=== PATIENT | female | born 1930 | race African-American/Black ===

== ENCOUNTER 2019-09-14 11:45 | Observation (INO) | payer MEDICARE, MEDICAID ==
--- NOTE | 2019-09-14 13:04 | RADIOLOGY REPORT (SQ) ---
EXAM DESCRIPTION: CHEST SINGLE VIEW COMPLETED DATE/TIME: 09/14/2019 12:49 pm REASON FOR STUDY: respitory distress COMPARISON: None. EXAM PARAMETERS: NUMBER OF VIEWS: One view. TECHNIQUE: An AP view of the chest was obtained. RADIATION DOSE: NA LIMITATIONS: None. FINDINGS: LUNGS AND PLEURA: Asymmetric parenchymal opacities in the medial aspect of the inferior le ft hemithorax. There is no sizable pleural effusion or pneumothorax. MEDIASTINUM AND HILAR STRUCTURES: No mediastinal or hilar contour abnormality. HEART AND VASCULAR STRUCTURES: The cardiac silhouette is enlarged. The pulmonary vasculature is with in normal limits. BONES: No acute findings. HARDWARE: None in the chest. OTHER: No other finding. IMPRESSION: 1. Cardiomegaly without pulmonary edema. 2. Asymmetric left retrocardiac opacities. Clinical correlate to exclude a pneumonia is recommended. TECHNICAL DOCUMENTATION: JOB ID: [id number] 2010 [employer]- All Rights Reserved Reading location - IP/workstation name: [email or web address]
[2019-09-14 16:32] LABS: APPEARANCE,URINE CLEAR; BILIRUBIN,URINE NEGATIVE (NEGATIVE); COLOR,URINE STRAW; GLUCOSE, URINE NEGATIVE (NEGATIVE); KETONES,URINE TRACE mg/dL (NEGATIVE); LEUKOCYTE ESTERASE,URINE NEGATIVE (NEGATIVE); NITRITE,URINE NEGATIVE (NEGATIVE); PROTEIN,URINE 100 mg/dL (NEGATIVE); UROBILINOGEN,URINE NEGATIVE mg/dL (<2.0)
[2019-09-14 16:47] LABS: ABSOLUTE BASOPHILS # (AUTO) 0.1 10^3/uL (0.0-0.2); ABSOLUTE EOSINOPHILS # (AUTO) 0.5 10^3/uL (0.0-0.6); ABSOLUTE LYMPHOCYTES (AUTO) 2.4 10^3/uL (0.5-4.7); ABSOLUTE MONOCYTES (AUTO) 0.5 10^3/uL (0.1-1.4); ABSOLUTE NEUT (AUTO) 3.6 10^3/uL (1.7-8.2); BASOPHILS % (AUTO) 0.9 % (0-2); EOSINOPHILS % (AUTO) 6.4 % (0-6); HEMATOCRIT 30.4 % (36.0-47.0); HEMOGLOBIN 9.2 g/dL (12.0-15.5); LYMPHOCYTES % (AUTO) 34.5 % (13-45); MEAN CORPUSCULAR HGB CONC 30.4 g/dL (32.0-36.0); MEAN CORPUSCULAR VOLUME 82 fl (80-97); MONOCYTES % (AUTO) 6.7 % (3-13); PLATELET COUNT 445 10^3/uL (150-450); RED CELL DISTRIBUTION WIDTH 18.7 % (11.5-14.0); SEGMENTED NEUTROPHILS % (AUTO) 51.5 % (42-78); TOTAL CELLS COUNTED % (AUTO) 100 %; WHITE BLOOD COUNT 7.1 10^3/uL (4.0-10.5)
[2019-09-14 16:55] LABS: ARTERIAL BLOOD BASE EXCESS 8.5 mmol/L; ARTERIAL BLOOD H2CO3 1.57 mmol/L (1.05-1.35); ARTERIAL BLOOD HCO3 33.9 mmol/L (20-24); ARTERIAL BLOOD O2 SATURATION 88.4 % (94-98); ARTERIAL BLOOD PH 7.43 (7.35-7.45); ARTERIAL BLOOD PO2 53.9 mmHg (80-100); ARTERIAL BLOOD TOTAL CO2 35.5 mmol/L (21-25)
[2019-09-14 17:12] LABS: ALBUMIN 3.4 g/dL (3.5-5.0); ALKALINE PHOSPHATASE 78 U/L (38-126); ASPARTATE AMINO TRANSFERASE 18 U/L (14-36); BILIRUBIN,DIRECT 0.3 mg/dL (0.0-0.4); BILIRUBIN,TOTAL 0.3 mg/dL (0.2-1.3); BLOOD UREA NITROGEN 12 mg/dL (7-20); CALCIUM 9.8 mg/dL (8.4-10.2); CHLORIDE 97 mmol/L (98-107); CREATINE KINASE 34 U/L (30-135); GLUCOSE 134 mg/dL (75-110); POTASSIUM 4.5 mmol/L (3.6-5.0); TOTAL PROTEIN 7.3 g/dL (6.3-8.2)
--- NOTE | 2019-09-14 17:20 | ER Document Report ---
Entered by KIESHA YUAN SCRIBE 09/14/19 1518 Acting as scribe for:MELL MARTINEZ MD ED General - General Chief Complaint: Respiratory Distress Stated Complaint: DIFFICULTY BREATHING Time Seen by Provider: 09/14/19 15:07 Primary Care Provider: JUANCARLOS DUNCAN MD [Primary Care Provider] - Follow up as needed Information source: Patient, Outside Facility Records Notes: 88-year-old female with dementia and COPD presents to the emergency department via with respiratory distress. Patient was brought over from detention and reports shortness of breath. Patient was hospitalized at [facility] on 08/15/2019 (1 month ago) for SOB and diagnosed with community-acquired pneumonia. Patient was transferred to [facility] on 08/24/2019. Patient was discharged yesterday (09/13/2019) and checked into detention yesterday. TRAVEL OUTSIDE OF THE [place] IN LAST 30 DAYS: No - Related Data Allergies/Adverse Reactions: barley Allergy (Verified 09/14/19 12:20) ranitidine Allergy (Verified 09/14/19 12:20) sulfamethoxazole [From Bactrim] Allergy (Verified 09/14/19 12:20) trimethoprim [From Bactrim] Allergy (Verified 09/14/19 12:20) iodine Adverse Reaction (Verified 09/14/19 12:20) shellfish derived Adverse Reaction (Verified 09/14/19 12:20) Past Medical History - General Information source: Patient - Social History Smoking Status: Unknown if Ever Smoked Cigarette use (# per day): No Chew tobacco use (# tins/day): No Smoking Education Provided: No Frequency of alcohol use: None Drug Abuse: None Lives with: Alf Family History: Other - Family history is not available. Patient has suicidal ideation: No Patient has homicidal ideation: No - Past Medical History Cardiac Medical History: Reports: Hx Congestive Heart Failure, Hx Hypercholesterolemia, Hx Hypertension, Other - Lymphedema Pulmonary Medical History: Reports: Hx COPD, Hx Pneumonia Neurological Medical History: Reports: Hx Seizures Endocrine Medical History: Reports: Hx Diabetes Mellitus Type 2, Hx Hypothyroidism Renal/ Medical History: Reports: Hx Renal Insufficiency GI Medical History: Reports: Hx Gastroesophageal Reflux Disease Musculoskeletal Medical History: Reports Hx Arthritis, Reports Hx Gout Psychiatric Medical History: Reports: Hx Dementia Surgical Hx: Other - Surgical history unknown Review of Systems - Review of Systems -: Yes ROS unobtainable due to patient's medical condition - Patient has dementia Physical Exam - Vital signs Vitals: Resp 29 H 09/14/19 12:00 - Notes Notes: Physical Exam: General: Alert, appears well. Conversational. Morbidly Obese. HEENT: Normocephalic. Atraumatic. PERRL. Extraocular movements intact. Oropharynx clear. Neck: Supple. Non-tender. Respiratory: Respiratory rate of 40. Rales and rhonchi in the lower lung mary on expiration. Moans with each expiration. Cardiovascular: Regular rate and rhythm. Abdominal: Normal Inspection. Non-tender. No distension. Normal Bowel Sounds. Back: No gross abnormalities. Extremities: Moves all four extremities. Upper extremities: Normal inspection. Normal ROM. Lower extremities: No edema. Normal ROM. 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 Neurological: Normal cognition. AAOx4. Normal speech. Psychological: Normal affect. Normal Mood. Skin: Warm. Dry. Normal color. Course - Re-evaluation Re-evalutation: 09/14/19 18:29 Room air ABG shows a pH 7.43, PCO2 52, PO2 of 53.9, O2 saturation 88.4%. Patient was placed on 2 liters O2 nasal cannula after the ABG results were available. Pulse oximetry increased to 100%. - Vital Signs Vital signs: Temp Pulse Resp BP Pulse Ox 98.4 F 35 H 169/86 H 91 L 09/14/19 14:17 09/14/19 18:02 09/14/19 18:02 09/14/19 17:17 - Laboratory Result Diagrams: 09/14/19 16:20 09/14/19 16:20 Laboratory results interpreted by me: 09/14/19 09/14/19 09/14/19 15:40 15:59 16:20 RBC 3.70 L Hgb 9.2 L Hct 30.4 L MCH 25.0 L MCHC 30.4 L RDW 18.7 H Eos % (Auto) 6.4 H Carbonic Acid 1.57 H ABG pCO2 52.0 H ABG pO2 53.9 L ABG HCO3 33.9 H ABG Total CO2 35.5 H ABG O2 Saturation 88.4 L Chloride Carbon Dioxide Glucose Albumin Urine Protein 100 H Urine Ketones TRACE H 09/14/19 16:20 RBC Hgb Hct MCH MCHC RDW Eos % (Auto) Carbonic Acid ABG pCO2 ABG pO2 ABG HCO3 ABG Total CO2 ABG O2 Saturation Chloride 97 L Carbon Dioxide 35 H Glucose 134 H Albumin 3.4 L Urine Protein Urine Ketones - Diagnostic Test Radiology reviewed: Image reviewed, Reports reviewed - Chest x-ray shows a left retrocardiac opacity - EKG Interpretation by Me EKG shows normal: Sinus rhythm, [place], Intervals, QRS Complexes, ST-T Waves Rate: Normal - 93 Rhythm: NSR - Consults Dr. Acevedo Consulted provider: other - Agrees with telemetry admit, will have the night hospitalist see the patient. Critical Care Note - Critical Care Note Total time excluding time spent on procedures (mins): 40 Discharge - Discharge Clinical Impression: Tachypnea, Hypoxemia, CO2 retention, Retrocardiac opacity, Tachycardia COPD (chronic obstructive pulmonary disease) Qualifiers: COPD type: unspecified COPD Qualified Code(s): J44.9 - Chronic obstructive pulmonary disease, unspecified Hypertension Qualifiers: Hypertension type: essential hypertension Qualified Code(s): I10 - Essential (primary) hypertension Condition: Good Disposition: ADMITTED INPATIENT Admitting Provider: Curtis (Hospitalist) Unit Admitted: Telemetry Referrals: JUANCARLOS DUNCAN MD [Primary Care Provider] - Follow up as needed I personally performed the services described in the documentation, reviewed and edited the documentation which was dictated to the scribe in my presence, and it accurately records my words and actions.
[2019-09-14 17:23] LABS: ANION GAP 11 (5-19)
[2019-09-14 17:25] LABS: CARBON DIOXIDE 35 mmol/L (22-30)
[2019-09-14 18:12] LABS: ARTERIAL BLOOD FIO2 2L
--- NOTE | 2019-09-14 18:44 | EKG REPORT ---
SEVERITY:- NORMAL ECG - SINUS RHYTHM : Confirmed by: Ziyad Blue MD 14-Sep-2019 18:43:25
[2019-09-14] MEDS ORDERED: IPRATROPIUM/ALBUTEROL 0.5-2.5 MG/3 ML AMPUL NEB ONE (18:47)
[2019-09-14] MEDS ORDERED: ALBUTEROL SULFATE 0.083% NEB 2.5 MG/3 ML AMPUL NEB ONE (19:15)
[2019-09-14] MEDS ORDERED: ONDANSETRON HCL INJ/PF 4 MG/2 ML SDV IV PRN (21:13)
[2019-09-14] MEDS ORDERED: ONDANSETRON 4 MG TAB.RAPDIS PO PRN (21:13)
[2019-09-14] MEDS ORDERED: ALBUTEROL SULFATE 0.083% NEB 2.5 MG/3 ML AMPUL NEB PRN (21:21)
[2019-09-14] MEDS ORDERED: BENZONATATE 100 MG CAPSULE PO PRN (21:21)
[2019-09-14] MEDS ORDERED: ALBUTEROL SULFATE HFA (90 MCG/PUFF) 8 GM MDI IH PRN (21:21)
--- NOTE | 2019-09-14 21:43 | PDOC H&P ---
History of Present Illness Admission Date/PCP: 09/14/19 19:19 JUANCARLOS DUNCAN MD History of Present Illness: HARPREET NEGRO is a 88 year old female with past medical history of COPD, severe community-acquired pneumonia, severe dementia, T2DM who presented from nursing facility after 1 day of acute respiratory distress with shortness of breath and [place]. Patient was reportedly admitted to [facility] for approximately 1 month for severe pneumonia and was released to nearby nursing [facility] on day of admission. History cannot be obtained by patient due to severe dementia, history primarily taken from ED staff and records. Patient initially placed on BiPAP in ED but she did not tolerate this at all and this was removed. She became more stable on only 2 L nasal cannula which she uses at home already chronically. She does not look toxic on exam and is breathing comfortably on 2 L nasal cannula. He is afebrile and has a normal WBC. Started on azithromycin, steroids, scheduled nebulizer treatments. Past Medical History Cardiac Medical History: Reports: Congestive Heart Failure, Hyperlipidema, Hypertension, Other - Lymphedema Pulmonary Medical History: Reports: Chronic Obstructive Pulmonary Disease (COPD ), Pneumonia Neurological Medical History: Reports: Seizures Endocrine Medical History: Reports: Diabetes Mellitus Type 2, Hypothyroidism GI Medical History: Reports: Gastroesophageal Reflux Disease Musculoskeltal Medical History: Reports: Arthritis, Gout Psychiatric Medical History: Reports: Dementia Social History Information Source: [facility] Records Lives with: Assisted Smoking Status: Unknown if Ever Smoked Electronic Cigarette use?: No - Advance Directive Resuscitation Status: Full Code Family History Family History: Other - Family history is not available. Parental Family History Reviewed: No - Patient has dementia and does not know answers to questions Children Family History Reviewed: NA Sibling(s) Family History Reviewed.: NA Medication/Allergy Home Medications: Acetaminophen [Tylenol 325 mg Tablet] 650 mg PO Q6HP PRN 09/14/19 Albuterol Sulfate [Ventolin 0.083% Neb 2.5 mg/3 mL Ampul] 1 vial NEB Q6HP PRN 09/14/19 Albuterol Sulfate [Ventolin Hfa 8 gm Mdi] 2 puff IH Q4HP PRN 09/14/19 Aspirin [Aspirin 81 mg Chewable Tablet] 81 mg PO DAILY 09/14/19 Benzonatate [Tessalon Perles 100 mg Capsule] 100 mg PO TIDP PRN 09/14/19 Budesonide/Formoterol Fumarate [Symbicort HFA 160-4.5 mcg Inhaler 6 gm] 2 puff IH Q12 09/14/19 Ferrous Sulfate [Feosol 325 mg Tablet] 325 mg PO DAILY 09/14/19 Gabapentin [Neurontin 300 mg Capsule] 600 mg PO Q8 09/14/19 Glimepiride [Amaryl 4 mg Tablet] 4 mg PO DAILY 09/14/19 Insulin Glargine/Lixisenatide [Soliqua 100 Unit-33 Mcg/ml Pen] 28 units SQ QHS 09/14/19 Levothyroxine Sodium [Synthroid 0.05 mg Tablet] 0.05 mg PO Q6AM 09/14/19 Metoprolol Tartrate [Lopressor 25 mg Tablet] 12.5 mg PO Q12 09/14/19 Mirtazapine 30 mg PO QHS 09/14/19 Montelukast Sodium [Singulair 10 mg Tablet] 10 mg PO DAILY 09/14/19 Multivit,Calc,Mins/Iron/Folic [Thera M Plus Tablet] 1 tab PO QPM 09/14/19 Omeprazole 40 mg PO BID 09/14/19 Thiamine HCl [Thiamine 100 mg Tablet] 100 mg PO DAILY 09/14/19 Zinc Oxide [Skin Protectant] 1 applic TOP Q12 09/14/19 Allergies/Adverse Reactions: barley Allergy (Verified 09/14/19 12:20) ranitidine Allergy (Verified 09/14/19 12:20) sulfamethoxazole [From Bactrim] Allergy (Verified 09/14/19 12:20) trimethoprim [From Bactrim] Allergy (Verified 09/14/19 12:20) iodine Adverse Reaction (Verified 09/14/19 12:20) shellfish derived Adverse Reaction (Verified 09/14/19 12:20) Review of Systems All systems: reviewed and no additional remarkable complaints except as stated - ROS unobtainable due to severe dementia, see HPI Physical Exam Vital Signs: Temp Pulse Resp BP Pulse Ox 99.2 F 29 H 140/65 H 100 09/14/19 20:15 09/14/19 20:01 09/14/19 20:01 09/14/19 20:01 Intake & Output 03/03/20 03/04/20 03/05/20 06:59 06:59 06:59 Output Total 500 Balance -500 General appearance: PRESENT: no acute distress, cooperative Head exam: PRESENT: atraumatic, normocephalic Eye exam: PRESENT: conjunctiva pink Mouth exam: PRESENT: moist Respiratory exam: PRESENT: decreased breath sounds - Overall bilateral chronic diminished breath sounds consistent with COPD, unlabored, wheezes. ABSENT: crackles, rales, tachypnea Cardiovascular exam: PRESENT: RRR. ABSENT: diastolic murmur, rubs, systolic murmur GI/Abdominal exam: PRESENT: normal bowel sounds, soft. ABSENT: distended, guarding, mass, organolmegaly, rebound, tenderness Rectal exam: PRESENT: deferred Extremities exam: ABSENT: pedal edema Neurological exam: PRESENT: alert, awake, oriented to person. ABSENT: oriented to place, oriented to time, oriented to situation Psychiatric exam: PRESENT: appropriate affect, normal mood Skin exam: PRESENT: dry, intact, warm Results Laboratory Results: 09/14/19 16:20 09/14/19 16:20 09/14/19 09/14/19 09/14/19 15:40 15:59 16:20 WBC 7.1 RBC 3.70 L Hgb 9.2 L Hct 30.4 L MCV 82 MCH 25.0 L MCHC 30.4 L RDW 18.7 H Plt Count 445 Seg Neutrophils % 51.5 Carbonic Acid 1.57 H HCO3/H2CO3 Ratio 21:1 ABG pH 7.43 ABG pCO2 52.0 H ABG pO2 53.9 L ABG HCO3 33.9 H ABG O2 Saturation 88.4 L ABG Base Excess 8.5 FiO2 2L Sodium Potassium Chloride Carbon Dioxide Anion Gap BUN Creatinine Est GFR ( Amer) Glucose Calcium Total Bilirubin AST Alkaline Phosphatase Total Protein Albumin Urine Color STRAW Urine Appearance CLEAR Urine pH 8.0 Ur Specific [place] 1.010 Urine Protein 100 H Urine Glucose (UA) NEGATIVE Urine Ketones TRACE H Urine Blood NEGATIVE Urine Nitrite NEGATIVE Ur Leukocyte Esterase NEGATIVE Urine WBC (Auto) 1 Urine RBC (Auto) 4 09/14/19 16:20 WBC RBC Hgb Hct MCV MCH MCHC RDW Plt Count Seg Neutrophils % Carbonic Acid HCO3/H2CO3 Ratio ABG pH ABG pCO2 ABG pO2 ABG HCO3 ABG O2 Saturation ABG Base Excess FiO2 Sodium 142.6 Potassium 4.5 Chloride 97 L Carbon Dioxide 35 H Anion Gap 11 BUN 12 Creatinine 0.89 Est GFR ( Amer) > 60 Glucose 134 H Calcium 9.8 Total Bilirubin 0.3 AST 18 Alkaline Phosphatase 78 Total Protein 7.3 Albumin 3.4 L Urine Color Urine Appearance Urine pH Ur Specific [place] Urine Protein Urine Glucose (UA) Urine Ketones Urine Blood Urine Nitrite Ur Leukocyte Esterase Urine WBC (Auto) Urine RBC (Auto) 09/14/19 09/14/19 16:20 16:20 Creatine Kinase 34 Troponin I < 0.012 Impressions: Chest X-Ray 09/14/19 00:00 IMPRESSION: 1. Cardiomegaly without pulmonary edema. 2. Asymmetric left retrocardiac opacities. Clinical correlate to exclude a pneumonia is recommended. Assessment and Plan - Diagnosis (1) COPD exacerbation Is this a current diagnosis for this admission?: Yes Plan: Wheezing on exam consistent with COPD exacerbation, no discrete crackles noted on exam but somewhat limited exam quality due to habitus Schedule duo nebs Azithromycin We will hold off on broader antibiotics for now as she has no fever and a normal WBC and was recently given a course of antibiotics at outside hospital Check PVL BLE to rule out DVT and d-dimer given her prolonged immobility she is at risk for DVT/PE; get CTA chest in a.m. if these tests are positive and treat appropriately Prednisone 40 mg daily for 5 days (2) T2DM (type 2 diabetes mellitus) Qualifiers: Diabetes mellitus [place] machine operator helper insulin use: with longterm use Diabetes mellitus complication status: with hyperglycemia Qualified Code(s): E11.65 - Type 2 diabetes mellitus with hyperglycemia; Z79.4 - computer terminal operator (current) use of insulin Is this a current diagnosis for this admission?: Yes Plan: Accu-Cheks Continue home Lantus Low-dose correctional insulin (3) CHF (congestive heart failure) Is this a current diagnosis for this admission?: Yes Plan: Unspecified CHF, unclear if diastolic or systolic Consider requesting outside records in a.m. Hold off on IV fluids unless absolutely indicated to avoid volume overload (4) Hypothyroidism Is this a current diagnosis for this admission?: Yes Plan: Synthroid continued (5) Severe dementia Is this a current diagnosis for this admission?: Yes Plan: Daughter is M POA Bedbound at baseline per ED staff (6) History of recent hospitalization Is this a current diagnosis for this admission?: Yes Plan: Recently treated for pneumonia at [facility] then sent to SNF 3/4 - Time Time Spent with patient: 35 or more minutes Anticipated discharge: SNF - Inpatient Certification Medical Necessity: Significant Comorbidiites Make Outpatient Treatment Too Risky, Need Close Monitoring Due to Risk of Patient Decompensation
[2019-09-14] MEDS ORDERED: ZINC OXIDE TOP SCH (22:00)
[2019-09-14] MEDS ORDERED: [UNRECOGNIZED DRUG - OTHER] SQ SCH (22:00)
[2019-09-14] MEDS ORDERED: MIRTAZAPINE 15 MG PO SCH (22:00)
[2019-09-14] MEDS: HEPARIN SOD (PORCINE) 5,000 UNIT/ML 1 ML VIAL SUBCUT SCH (23:23)
[2019-09-14] MEDS: METOPROLOL TARTRATE 25 MG TABLET PO SCH (23:23)
[2019-09-14] MEDS: GABAPENTIN 300 MG CAPSULE PO SCH (23:24)
[2019-09-14] MEDS: MIRTAZAPINE 15 MG TABLET PO SCH (23:24)
[2019-09-14] MEDS: ZINC OXIDE 20% OINTMENT 28.35 GM TP SCH (23:24)
[2019-09-14] MEDS: PREDNISONE 20 MG TABLET PO SCH (23:59)
[2019-09-15] MEDS: INSULIN LISPRO 100 UNIT/ML 3 ML VIAL SUBCUT SCH ×4 (00:24→17:03)
[2019-09-15] MEDS: IPRATROPIUM/ALBUTEROL 0.5-2.5 MG/3 ML AMPUL NEB SCH ×7 (00:45→23:33)
[2019-09-15 05:42] LABS: ABSOLUTE EOSINOPHILS # (AUTO) 0.1 10^3/uL (0.0-0.6); ABSOLUTE LYMPHOCYTES (AUTO) 1.3 10^3/uL (0.5-4.7); ABSOLUTE MONOCYTES (AUTO) 0.1 10^3/uL (0.1-1.4); ABSOLUTE NEUT (AUTO) 3.7 10^3/uL (1.7-8.2); BASOPHILS % (AUTO) 0.6 % (0-2); HEMATOCRIT 29.5 % (36.0-47.0); HEMOGLOBIN 9.6 g/dL (12.0-15.5); LYMPHOCYTES % (AUTO) 25.2 % (13-45); MEAN CORPUSCULAR HEMOGLOBIN 26.2 pg (27.0-33.4); MEAN CORPUSCULAR HGB CONC 32.6 g/dL (32.0-36.0); MEAN CORPUSCULAR VOLUME 80 fl (80-97); MONOCYTES % (AUTO) 1.9 % (3-13); PLATELET COUNT 422 10^3/uL (150-450); RED BLOOD COUNT 3.67 10^6/uL (3.72-5.28); RED CELL DISTRIBUTION WIDTH 19.5 % (11.5-14.0); SEGMENTED NEUTROPHILS % (AUTO) 71.3 % (42-78); TOTAL CELLS COUNTED % (AUTO) 100 %; WHITE BLOOD COUNT 5.2 10^3/uL (4.0-10.5)
[2019-09-15] MEDS: GABAPENTIN 300 MG CAPSULE PO SCH ×3 (05:54→21:22)
[2019-09-15] MEDS: LEVOTHYROXINE SODIUM 0.05 MG TABLET PO SCH (05:54)
[2019-09-15] MEDS: HEPARIN SOD (PORCINE) 5,000 UNIT/ML 1 ML VIAL SUBCUT SCH ×3 (05:56→21:22)
[2019-09-15 06:06] LABS: ANION GAP 8 (5-19); BLOOD UREA NITROGEN 12 mg/dL (7-20); CALCIUM 9.8 mg/dL (8.4-10.2); CARBON DIOXIDE 36 mmol/L (22-30); CHLORIDE 98 mmol/L (98-107); GLUCOSE 143 mg/dL (75-110); POTASSIUM 4.9 mmol/L (3.6-5.0)
[2019-09-15] MEDS: GLIMEPIRIDE 4 MG TABLET PO SCH (10:55)
[2019-09-15] MEDS: PANTOPRAZOLE SODIUM 40 MG TABLET.DR PO SCH ×2 (10:55→17:04)
[2019-09-15] MEDS: AZITHROMYCIN 250 MG TABLET PO SCH (10:55)
[2019-09-15] MEDS: ASPIRIN 81 MG TABLET, CHEWABLE PO SCH (10:58)
[2019-09-15] MEDS: METOPROLOL TARTRATE 25 MG TABLET PO SCH ×2 (10:58→21:21)
[2019-09-15] MEDS: THIAMINE HCL 100 MG TABLET PO SCH (10:58)
[2019-09-15] MEDS: FLUTICASONE/VILANTEROL 200-25 MCG/DOSE IH SCH (10:58)
[2019-09-15] MEDS: FERROUS SULFATE 325 MG TABLET PO SCH (10:58)
[2019-09-15] MEDS: PREDNISONE 20 MG TABLET PO SCH (10:58)
[2019-09-15] MEDS: MONTELUKAST SODIUM 10 MG TABLET PO SCH (10:58)
[2019-09-15] MEDS: ZINC OXIDE 20% OINTMENT 28.35 GM TP SCH ×2 (10:59→21:27)
--- NOTE | 2019-09-15 14:13 | PDOC PROGRESS REPORT ---
Subjective Progress Note for:: 09/15/19 Subjective:: Per the nurses the patient had a reasonable night. Her breathing has settled. She is not on BiPAP at this time. She is somewhat somnolent. The nurses state that this is not out of her normal pattern of behavior. They did reach out to the skilled facility for further information. Because of her history of COPD and her elevated PCO2 on admitting blood gas I am going to check another ABG. Reason For Visit: COPD EXACERBATION Physical Exam Vital Signs: Temp Pulse Resp BP Pulse Ox 98.0 F 88 18 139/61 H 90 L 09/15/19 11:16 09/15/19 12:19 09/15/19 12:19 09/15/19 11:16 09/15/19 12:19 Intake & Output 09/14/19 09/15/19 09/16/19 06:59 06:59 06:59 Output Total 750 300 Balance -750 -300 Weight 97.7 kg General appearance: PRESENT: no acute distress, other - Somnolent Head exam: PRESENT: atraumatic, normocephalic Respiratory exam: PRESENT: clear to auscultation mar[place] - Anteriorly, symmetrical, unlabored. ABSENT: rales, rhonchi, tachypnea, wheezes Cardiovascular exam: PRESENT: RRR, +S1, +S2 GI/Abdominal exam: PRESENT: normal bowel sounds, soft. ABSENT: distended, tenderness Rectal exam: PRESENT: deferred Neurological exam: PRESENT: altered - Patient is quite somnolent. I did make several attempts to awaken the patient. Nurses report that after discussing with the skilled facility this is possibly her baseline pattern of behavior. ABSENT: awake Results Laboratory Results: 09/15/19 05:08 09/15/19 05:08 09/14/19 09/14/19 09/14/19 15:40 15:59 16:20 WBC 7.1 RBC 3.70 L Hgb 9.2 L Hct 30.4 L MCV 82 MCH 25.0 L MCHC 30.4 L RDW 18.7 H Plt Count 445 Seg Neutrophils % 51.5 Carbonic Acid 1.57 H HCO3/H2CO3 Ratio 21:1 ABG pH 7.43 ABG pCO2 52.0 H ABG pO2 53.9 L ABG HCO3 33.9 H ABG O2 Saturation 88.4 L ABG Base Excess 8.5 FiO2 2L Sodium Potassium Chloride Carbon Dioxide Anion Gap BUN Creatinine Est GFR ( Amer) Glucose Calcium Magnesium Total Bilirubin AST Alkaline Phosphatase Total Protein Albumin Urine Color STRAW Urine Appearance CLEAR Urine pH 8.0 Ur Specific [place] 1.010 Urine Protein 100 H Urine Glucose (UA) NEGATIVE Urine Ketones TRACE H Urine Blood NEGATIVE Urine Nitrite NEGATIVE Ur Leukocyte Esterase NEGATIVE Urine WBC (Auto) 1 Urine RBC (Auto) 4 09/14/19 09/15/19 09/15/19 16:20 05:08 05:08 WBC 5.2 RBC 3.67 L Hgb 9.6 L Hct 29.5 L MCV 80 MCH 26.2 L MCHC 32.6 RDW 19.5 H Plt Count 422 Seg Neutrophils % 71.3 Carbonic Acid HCO3/H2CO3 Ratio ABG pH ABG pCO2 ABG pO2 ABG HCO3 ABG O2 Saturation ABG Base Excess FiO2 Sodium 142.6 142.1 Potassium 4.5 4.9 Chloride 97 L 98 Carbon Dioxide 35 H 36 H Anion Gap 11 8 BUN 12 12 Creatinine 0.89 0.77 Est GFR ( Amer) > 60 > 60 Glucose 134 H 143 H Calcium 9.8 9.8 Magnesium 2.1 Total Bilirubin 0.3 AST 18 Alkaline Phosphatase 78 Total Protein 7.3 Albumin 3.4 L Urine Color Urine Appearance Urine pH Ur Specific [place] Urine Protein Urine Glucose (UA) Urine Ketones Urine Blood Urine Nitrite Ur Leukocyte Esterase Urine WBC (Auto) Urine RBC (Auto) 09/14/19 09/14/19 16:20 16:20 Creatine Kinase 34 Troponin I < 0.012 Impressions: Chest X-Ray 09/14/19 00:00 IMPRESSION: 1. Cardiomegaly without pulmonary edema. 2. Asymmetric left retrocardiac opacities. Clinical correlate to exclude a pne [place] is recommended. Assessment and Plan - Diagnosis (1) COPD exacerbation Is this a current diagnosis for this admission?: Yes Plan: Wheezing on exam consistent with COPD exacerbation, no discrete crackles noted on exam but somewhat limited exam quality due to habitus Schedule duo nebs Azithromycin We will hold off on broader antibiotics for now as she has no fever and a gabriella l WBC and was recently given a course of antibiotics at outside hospital Check PVL BLE to rule out DVT and d-dimer given her prolonged immobility she is at risk for DVT/PE; get CTA chest in a.m. if these tests are positive and treat appropriately Prednisone 40 mg daily for 5 days 09/15/2019 The patient is somnolent. This could be related to retained carbon dioxide. I will check a blood gas. Nursing reports that this may be her baseline. We will continue her current treatment regimen including nebulizer treatments and steroids. She was on BiPAP yesterday. Currently on nasal cannula. Continue oxygen supplementation to keep saturation 88 to 92%. (2) T2DM (type 2 diabetes mellitus) Qualifiers: Diabetes mellitus termination clerk insulin use: with [facility] use Diabetes mellitus complication status: with hyperglycemia Qualified Code(s): E11.65 - Type 2 diabetes mellitus with hyperglycemia; Z79.4 - nursing home (current) use of insulin Is this a current diagnosis for this admission?: Yes Plan: Accu-Cheks Continue home Lantus Low-dose correctional insulin 09/15/2019 Serum glucose is about the same. Accu-Cheks are slightly higher. Continue current regimen and adjust medications based on sliding scale requirements. (3) CHF (congestive heart failure) Qualifiers: Heart failure type: unspecified Is this a current diagnosis for this admission?: Yes Plan: Unspecified CHF, unclear if diastolic or systolic Consider requesting outside records in a.m. Hold off on IV fluids unless absolutely indicated to avoid volume overload 09/15/2019 No evidence of overt failure. We will continue current regimen at this time. (4) Hypothyroidism Qualifiers: Hypothyroidism type: unspecified Qualified Code(s): E03.9 - Hypothyroidism, unspecified Is this a current diagnosis for this admission?: Yes Plan: Synthroid continued 09/15/2019 Continue current dose of levothyroxine. If somnolence persists consider rechecking thyroid laboratory studies. (5) Severe dementia Is this a current diagnosis for this admission?: Yes Plan: Daughter is M POA Bedbound at baseline per ED staff 09/15/2019 No acute intervention at this time as this appears to be the patient's baseline. (6) History of recent hospitalization Is this a current diagnosis for this admission?: Yes Plan: Recently treated for pneumonia at [facility] then sent to SNF 3/09/15/2019 Respiratory status is better than on admission. Continue current treatment for pneumonia. If this is truly her baseline then strong consideration needs to be given to review CODE STATUS and realistic expectations with the patient's family. - Time Time Spent with patient: Less than 15 minutes Medications reviewed and adjusted accordingly: Yes Anticipated discharge: SNF
[2019-09-15 14:46] LABS: ARTERIAL BLOOD BASE EXCESS 9.3 mmol/L; ARTERIAL BLOOD H2CO3 1.62 mmol/L (1.05-1.35); ARTERIAL BLOOD HCO3 34.9 mmol/L (20-24); ARTERIAL BLOOD O2 SATURATION 96.6 % (94-98); ARTERIAL BLOOD PCO2 53.8 mmHg (35-45); ARTERIAL BLOOD PH 7.43 (7.35-7.45); ARTERIAL BLOOD PO2 86.8 mmHg (80-100); ARTERIAL BLOOD TOTAL CO2 36.6 mmol/L (21-25)
[2019-09-15 14:49] LABS: ARTERIAL BLOOD FIO2 2L
[2019-09-15] MEDS: MULTIVITAMIN TABLET PO SCH (17:04)
[2019-09-15] MEDS ORDERED: IRON PO SCH (18:00)
[2019-09-15] MEDS ORDERED: FOLIC PO SCH (18:00)
[2019-09-15] MEDS ORDERED: MULTIVIT CALC MINS PO SCH (18:00)
[2019-09-15] MEDS: ACETAMINOPHEN 325 MG TABLET PO PRN (20:41)
[2019-09-15] MEDS: MIRTAZAPINE 15 MG TABLET PO SCH (21:22)
[2019-09-16] MEDS: INSULIN LISPRO 100 UNIT/ML 3 ML VIAL SUBCUT SCH ×4 (00:15→17:14)
[2019-09-16] MEDS: IPRATROPIUM/ALBUTEROL 0.5-2.5 MG/3 ML AMPUL NEB SCH ×4 (04:05→15:38)
[2019-09-16] MEDS: HEPARIN SOD (PORCINE) 5,000 UNIT/ML 1 ML VIAL SUBCUT SCH ×2 (06:19→13:24)
[2019-09-16] MEDS: GABAPENTIN 300 MG CAPSULE PO SCH ×2 (06:19→13:23)
[2019-09-16] MEDS: LEVOTHYROXINE SODIUM 0.05 MG TABLET PO SCH (06:19)
[2019-09-16] MEDS: FERROUS SULFATE 325 MG TABLET PO SCH (09:08)
[2019-09-16] MEDS: GLIMEPIRIDE 4 MG TABLET PO SCH (09:08)
[2019-09-16] MEDS: THIAMINE HCL 100 MG TABLET PO SCH (09:08)
[2019-09-16] MEDS: AZITHROMYCIN 250 MG TABLET PO SCH (09:08)
[2019-09-16] MEDS: ASPIRIN 81 MG TABLET, CHEWABLE PO SCH (09:08)
[2019-09-16] MEDS: MONTELUKAST SODIUM 10 MG TABLET PO SCH (09:08)
[2019-09-16] MEDS: METOPROLOL TARTRATE 25 MG TABLET PO SCH (09:08)
[2019-09-16] MEDS: PREDNISONE 20 MG TABLET PO SCH (09:08)
[2019-09-16] MEDS: ZINC OXIDE 20% OINTMENT 28.35 GM TP SCH (09:09)
[2019-09-16] MEDS: PANTOPRAZOLE SODIUM 40 MG TABLET.DR PO SCH ×2 (09:09→17:14)
[2019-09-16] MEDS: FLUTICASONE/VILANTEROL 200-25 MCG/DOSE IH SCH (09:10)
--- NOTE | 2019-09-16 13:56 | PDOC TRANSFER SUMMARY ---
Impression - Admit/DC Date/PCP Admission Date/Primary Care Provider: 09/14/19 19:19 JUANCARLOS DUNCAN MD Discharge Date: 09/16/19 - Discharge Diagnosis (1) COPD exacerbation Is this a current diagnosis for this admission?: Yes (2) History of recent hospitalization Is this a current diagnosis for this admission?: Yes (3) Hypothyroidism Is this a current diagnosis for this admission?: Yes (4) Severe dementia Is this a current diagnosis for this admission?: Yes (5) T2DM (type 2 diabetes mellitus) Is this a current diagnosis for this admission?: Yes - Additional Information Resuscitation Status: Full Code Referrals: JUANCARLOS DUNCAN MD [Primary Care Provider] - Follow up as needed Prescriptions: Azithromycin [Zithromax 250 mg Tablet] 250 mg PO ASDIR PRN 4 Days #4 tablet PRN Reason: Home Medications: Acetaminophen [Tylenol 325 mg Tablet] 650 mg PO Q6HP PRN 09/14/19 Albuterol Sulfate [Ventolin 0.083% Neb 2.5 mg/3 mL Ampul] 1 vial NEB Q6HP PRN 09/14/19 Albuterol Sulfate [Ventolin Hfa 8 gm Mdi] 2 puff IH Q4HP PRN 09/14/19 Aspirin [Aspirin 81 mg Chewable Tablet] 81 mg PO DAILY 09/14/19 Benzonatate [Tessalon Perles 100 mg Capsule] 100 mg PO TIDP PRN 09/14/19 Budesonide/Formoterol Fumarate [Symbicort HFA 160-4.5 mcg Inhaler 6 gm] 2 puff IH Q12 09/14/19 Ferrous Sulfate [Feosol 325 mg Tablet] 325 mg PO DAILY 09/14/19 Gabapentin [Neurontin 300 mg Capsule] 600 mg PO Q8 09/14/19 Glimepiride [Amaryl 4 mg Tablet] 4 mg PO DAILY 09/14/19 Insulin Glargine/Lixisenatide [Soliqua 100 Unit-33 Mcg/ml Pen] 28 units SQ QHS 09/14/19 Levothyroxine Sodium [Synthroid 0.05 mg Tablet] 0.05 mg PO Q6AM 09/14/19 Metoprolol Tartrate [Lopressor 25 mg Tablet] 12.5 mg PO Q12 09/14/19 Mirtazapine 30 mg PO QHS 09/14/19 Montelukast Sodium [Singulair 10 mg Tablet] 10 mg PO DAILY 09/14/19 Multivit,Calc,Mins/Iron/Folic [Thera M Plus Tablet] 1 tab PO QPM 09/14/19 Omeprazole 40 mg PO BID 09/14/19 Thiamine HCl [Thiamine 100 mg Tablet] 100 mg PO DAILY 09/14/19 Zinc Oxide [Skin Protectant] 1 applic TOP Q12 09/14/19 Azithromycin [Zithromax 250 mg Tablet] 250 mg PO ASDIR PRN 4 Days #4 tablet 09/16/19 Prednisone [Deltasone 20 mg Tablet] 40 mg PO DAILY 3 Days tablet 09/16/19 History of Present Illiness History of Present Illness: HARPREET NEGRO is a 88 year old female with past medical history of COPD, severe community-acquired pneumonia, severe dementia, T2DM who presented from nursing facility after 1 day of acute respiratory distress with shortness of breath and ROCK. Patient was reportedly admitted to [facility] for approximately 1 month for severe pneumonia and was released to nearby nursing facility on day of admission. History cannot be obtained by patient due to severe dementia, history primarily taken from ED staff and records. Patient initially placed on BiPAP in ED but she did not tolerate this at all and this was removed. She became more stable on only 2 L nasal cannula which she uses at home already chronically. She does not look toxic on exam and is breathing comfortably on 2 L nasal cannula. He is afebrile and has a normal WBC. Started on azithromycin, steroids, scheduled nebulizer treatments. Hospital Course Hospital Course: Patient was admitted to the hospital for evaluation of respiratory distress. On initial presentation, patient was seen respiratory distress and required to be shortly placed on BiPAP. Initially noted to be mildly hypoxic at 90% on room air. She required BiPAP only briefly which was subsequently discontinued. She was thought to be having a COPD exacerbation. Chest x-ray showed mild remnant opacities indicative of resolving recent pneumonia. No evidence of leukocytosis on lab work or other findings to suggest new or incompletely treated pneumonia. Patient is being treated for COPD exacerbation and has received nebulizers as well as some doses of steroids and azithromycin. Patient has tolerated on room air for the past day and is comfortable today. Patient is to continue breathing treatments with albuterol nebulizer 3 times a day for the next 3 days after which only given on an as needed basis. Patient is being discharged with prednisone to continue for 3 more days as well as azithromycin to continue for 4 days. Patient has documentation of prior chronic congestive heart failure EF unknown but does not seem to be having any acute exacerbation of her CHF at this time. Physical Exam Vital Signs: Temp Pulse Resp BP Pulse Ox 97.8 F 79 17 145/71 H 97 09/16/19 12:04 09/16/19 12:04 09/16/19 12:04 09/16/19 12:04 09/16/19 12:04 Intake & Output 09/15/19 09/16/19 09/17/19 06:59 06:59 06:59 Intake Total 594 Output Total 750 500 Balance -750 94 Weight 97.7 kg 99.9 kg General appearance: PRESENT: no acute distress, cooperative Neck exam: ABSENT: JVD Respiratory exam: PRESENT: clear to auscultation marques, unlabored. ABSENT: retraction, tachypnea, wheezes Cardiovascular exam: PRESENT: RRR, +S1, +S2. ABSENT: tachycardia Neurological exam: PRESENT: alert, awake Results Laboratory Results: WBC 5.2 10^3/uL (4.0-10.5) 09/15/19 05:08 RBC 3.67 10^6/uL (3.72-5.28) L 09/15/19 05:08 Hgb 9.6 g/dL (12.0-15.5) L 09/15/19 05:08 Hct 29.5 % (36.0-47.0) L 09/15/19 05:08 MCV 80 fl (80-97) 09/15/19 05:08 MCH 26.2 pg (27.0-33.4) L 09/15/19 05:08 MCHC 32.6 g/dL (32.0-36.0) 09/15/19 05:08 RDW 19.5 % (11.5-14.0) H 09/15/19 05:08 Plt Count 422 10^3/uL (150-450) 09/15/19 05:08 Lymph % (Auto) 25.2 % (13-45) 09/15/19 05:08 [place] % (Auto) 1.9 % (3-13) L 09/15/19 05:08 Eos % (Auto) 1.0 % (0-6) 09/15/19 05:08 Baso % (Auto) 0.6 % (0-2) 09/15/19 05:08 Absolute Neuts (auto) 3.7 10^3/uL (1.7-8.2) 09/15/19 05:08 Absolute Lymphs (auto) 1.3 10^3/uL (0.5-4.7) 09/15/19 05:08 Absolute Monos (auto) 0.1 10^3/uL (0.1-1.4) 09/15/19 05:08 Absolute Eos (auto) 0.1 10^3/uL (0.0-0.6) 09/15/19 05:08 Absolute Basos (auto) 0.0 10^3/uL (0.0-0.2) 09/15/19 05:08 Seg Neutrophils % 71.3 % (42-78) 09/15/19 05:08 D-Dimer 2.73 ug/mL (0.00-0.50) H 09/14/19 21:44 Carbonic Acid 1.62 mmol/L (1.05-1.35) H 09/15/19 14:25 HCO3/H2CO3 Ratio 21:1 09/15/19 14:25 ABG pH 7.43 (7.35-7.45) 09/15/19 14:25 ABG pCO2 53.8 mmHg (35-45) H 09/15/19 14:25 ABG pO2 86.8 mmHg (80-100) 09/15/19 14:25 ABG HCO3 34.9 mmol/L (20-24) H 09/15/19 14:25 ABG Total CO2 36.6 mmol/L (21-25) H 09/15/19 14:25 ABG O2 Saturation 96.6 % (94-98) 09/15/19 14:25 ABG Base Excess 9.3 mmol/L 09/15/19 14:25 FiO2 2L 09/15/19 14:25 Sodium 142.1 mmol/L (137-145) 09/15/19 05:08 Potassium 4.9 mmol/L (3.6-5.0) 09/15/19 05:08 Chloride 98 mmol/L (98-107) 03/05/20 05:08 Carbon Dioxide 36 mmol/L (22-30) H 09/15/19 05:08 Anion Gap 8 (5-19) 09/15/19 05:08 BUN 12 mg/dL (7-20) 09/15/19 05:08 Creatinine 0.77 mg/dL (0.52-1.25) 09/15/19 05:08 Est GFR ( Amer) > 60 (>60) 09/15/19 05:08 Est GFR (MDRD) Non-Af > 60 (>60) 09/15/19 05:08 Glucose 143 mg/dL (75-110) H 09/15/19 05:08 POC Glucose 223 mg/dL (70-110) H 09/16/19 11:34 Calcium 9.8 mg/dL (8.4-10.2) 09/15/19 05:08 Magnesium 2.1 mg/dL (1.6-2.3) 09/15/19 05:08 Total Bilirubin 0.3 mg/dL (0.2-1.3) 09/14/19 16:20 Direct Bilirubin 0.3 mg/dL (0.0-0.4) 09/14/19 16:20 Neonat Total Bilirubin Not Reportable 09/14/19 16:20 Neonat Direct Bilirubin Not Reportable 09/14/19 16:20 Neonat Indirect Bili Not Reportable 09/14/19 16:20 AST 18 U/L (14-36) 09/14/19 16:20 ALT 9 U/L (<35) 09/14/19 16:20 Alkaline Phosphatase 78 U/L (38-126) 09/14/19 16:20 Creatine Kinase 34 U/L (30-135) 09/14/19 16:20 Troponin I < 0.012 ng/mL 09/14/19 16:20 Total Protein 7.3 g/dL (6.3-8.2) 09/14/19 16:20 Albumin 3.4 g/dL (3.5-5.0) L 09/14/19 16:20 Urine Color STRAW 09/14/19 15:59 Urine Appearance CLEAR 09/14/19 15:59 Urine pH 8.0 (5.0-9.0) 09/14/19 15:59 Ur Specific Jackson 1.010 09/14/19 15:59 Urine Protein 100 mg/dL (NEGATIVE) H 09/14/19 15:59 Urine Glucose (UA) NEGATIVE mg/dL (NEGATIVE) 09/14/19 15:59 Urine Ketones TRACE mg/dL (NEGATIVE) H 09/14/19 15:59 Urine Blood NEGATIVE (NEGATIVE) 09/14/19 15:59 Urine Nitrite NEGATIVE (NEGATIVE) 09/14/19 15:59 Urine Bilirubin NEGATIVE (NEGATIVE) 09/14/19 15:59 Urine Urobilinogen NEGATIVE mg/dL (<2.0) 09/14/19 15:59 Ur Leukocyte Esterase NEGATIVE (NEGATIVE) 09/14/19 15:59 Urine WBC (Auto) 1 /HPF 09/14/19 15:59 Urine RBC (Auto) 4 /HPF 09/14/19 15:59 Squamous Epi Cells Auto 1 /HPF 09/14/19 15:59 Urine Mucus (Auto) RARE /LPF 09/14/19 15:59 Urine Ascorbic Acid NEGATIVE (NEGATIVE) 09/14/19 15:59 09/14/19 16:20 Troponin I < 0.012 Impressions: Chest X-Ray 09/14/19 00:00 IMPRESSION: 1. Cardiomegaly without pulmonary edema. 2. Asymmetric left retrocardiac opacities. Clinical correlate to exclude a pneumonia is recommended. Plan Time Spent: Less than 30 Minutes Stroke Is this a Stroke Patient?: No Acute Heart Failure - Is this a Heart Failure Patient?: Yes Documentation of LVEF assessment?: No, Document reason - Not in active heart failure. She just has an apparent history of CHF. LVEF < 40%?: No- if no continue to question #3 3. Anticoagulant therapy for permanect/persistent/paraoxysmal Afib or Aflutter: N/A
[2019-09-16] MEDS: ACETAMINOPHEN 325 MG TABLET PO PRN (16:25)
[2019-09-16 17:05] VITALS: BP 139/82
[2019-09-16] MEDS: MULTIVITAMIN TABLET PO SCH (17:14)
== END 2019-09-16 17:28 ==
LOC: ER 11:45 → EH 19:19 → INTOOBSV 19:19 → 4S 23:01
PROVIDERS: ADMIT Hospitalist; ATTEND Hospitalist
DX: J44.1 Chronic obstructive pulmonary disease with (acute) exacerbation (principal); E03.9 Hypothyroidism, unspecified; F03.90 Unspecified dementia, unspecified severity, without behavioral disturbance, psychotic disturbance, mood disturbance, and anxiety; E11.65 Type 2 diabetes mellitus with hyperglycemia; I11.0 Hypertensive heart disease with heart failure; I50.9 Heart failure, unspecified; R40.0 Somnolence; R53.2 Functional quadriplegia; M19.90 Unspecified osteoarthritis, unspecified site; E66.01 Morbid (severe) obesity due to excess calories; M17.0 Bilateral primary osteoarthritis of knee; R09.02 Hypoxemia; R00.0 Tachycardia, unspecified; R06.82 Tachypnea, not elsewhere classified; Z79.899 Other long term (current) drug therapy; Z79.82 Long term (current) use of aspirin; Z99.81 Dependence on supplemental oxygen; Z87.01 Personal history of pneumonia (recurrent); Z79.4 Long term (current) use of insulin; Z74.01 Bed confinement status; Z92.89 Personal history of other medical treatment
CPT/HCPCS: 93005; 94640 ×4; 99285; 36415 ×2; 87040; 82962 ×3; 82803 ×2; 82550; 83735; 85025 ×2; 80048; 80053; 81001; 84484; 85379; 71045; 93010; 36600 ×2; 94660; 97530; 97163; G0378 ×2; A9270 ×38; J1644 ×3; J3490; J1815; J7512; J7620

== ENCOUNTER 2019-10-05 10:27 | Observation (INO) | payer MEDICARE, MEDICAID ==
[2019-10-05] MEDS ORDERED: NORMAL SALINE 1000 ML 250 ML IV ONE (10:42)
--- NOTE | 2019-10-05 10:51 | ER Document Report ---
ED Cardiac - General Stated Complaint: CHEST PAIN Time Seen by Provider: 10/05/19 10:32 Primary Care Provider: DAVID SORIANO MD [Primary Care Provider] - Follow up as needed Information source: Patient, Emergency Med Personnel Cannot obtain history due to: Dementia, Other - AGE & DIFFICULT TO UNDERSTAND Notes: Patient brought in by EMS from [facility] with a complaint of chest pa in substernal without radiation. History and physical and review of systems are all limited by patient's age and by the fact that she is difficult to understand. EMS gave the patient aspirin 325 and nitroglycerin in route, with improvement of chest pain. Apparently the patient had a pneumonia approximately 1 week ago. She is not able to give me any further history and appears comfortable at this time. She does have a history of CHF, COPD, DEMENTIA, HTN and diabetes. TRAVEL OUTSIDE OF THE [place] IN LAST 30 DAYS: No - Related Data Allergies/Adverse Reactions: barley Allergy (Verified 09/14/19 12:20) ranitidine Allergy (Verified 09/14/19 12:20) sulfamethoxazole [From Bactrim] Allergy (Verified 09/14/19 12:20) trimethoprim [From Bactrim] Allergy (Verified 09/14/19 12:20) iodine Adverse Reaction (Verified 09/14/19 12:20) shellfish derived Adverse Reaction (Verified 09/14/19 12:20) Past Medical History - General Information source: Patient, Emergency Med Personnel - Social History Smoking Status: Unknown if Ever Smoked Family History: Other - Family history is not available. - Past Medical History Cardiac Medical History: Reports: Hx Congestive Heart Failure, Hx Hypercholesterolemia, Hx Hypertension Pulmonary Medical History: Reports: Hx COPD, Hx Pneumonia Neurological Medical History: Reports: Hx Seizures Endocrine Medical History: Reports: Hx Diabetes Mellitus Type 2, Hx Hypothyroidism Renal/ Medical History: Reports: Hx Renal Insufficiency GI Medical History: Reports: Hx Gastroesophageal Reflux Disease Musculoskeletal Medical History: Reports Hx Arthritis, Reports Hx Gout Psychiatric Medical History: Reports: Hx Dementia Review of Systems - Review of Systems -: Yes ROS unobtainable due to patient's medical condition Physical Exam - Vital signs Vitals: Resp Pulse Ox 27 H 92 10/05/19 10:35 10/05/19 10:35 Interpretation: Tachycardic - General General appearance: Appears well - HEENT Head: Normocephalic Nasal: Normal Mouth/Lips: Normal Mucous membranes: Dry Pharynx: Normal Neck: Normal, Supple - Respiratory Respiratory status: No respiratory distress Chest status: Nontender Breath sounds: Normal Chest palpation: Normal - Cardiovascular Rhythm: Regular, Tachycardia Murmur: No - Abdominal Inspection: Normal Tenderness: Nontender. No: Guarding, Rebound - Back Back: Normal. No: Tender, CVA tenderness - Extremities General upper extremity: Normal inspection, Normal ROM General lower extremity: Normal inspection, Normal ROM - Neurological Neuro grossly intact: Yes Cognition: Other Cranial nerves: Normal - Psychological Associated symptoms: Normal affect, Normal mood - Skin Skin Temperature: Warm Skin Moisture: Dry Course - Re-evaluation Re-evalutation: 10/05/19 10:52 EKG PER ME SINUS TACHYCARDIA [address] CHANGES AND MILD ARTIFACT. 10/05/19 12:13 LABS REVIEWED. CXR TRACE L PLEURAL EFFUSION PER RADIOLOGIST. 10/05/19 12:24 DISCUSSED CASE IN DETAIL WITH DR. PRADHAN, WHO WILL SEE PT FOR ADMISSION. SHE IS STABLE. - Vital Signs Vital signs: Temp Pulse Resp BP Pulse Ox 97.9 F 29 H 113/63 96 10/05/19 11:01 10/05/19 11:01 10/05/19 11:01 10/05/19 11:01 - Laboratory Result Diagrams: 10/05/19 10:45 10/05/19 10:45 Laboratory results interpreted by me: 10/05/19 10/05/19 10:45 10:45 Hgb 9.8 L Hct 30.8 L MCH 26.1 L MCHC 31.9 L RDW 19.1 H Plt Count 492 H Sodium 136.6 L Chloride 95 L Carbon Dioxide 38 H Anion Gap 4 L Glucose 195 H Albumin 3.1 L - Diagnostic Test Radiology reviewed: Image reviewed, Reports reviewed Discharge - Discharge Clinical Impression: Chest pain Qualifiers: Chest pain type: unspecified Qualified Code(s): R07.9 - Chest pain, unspecified Anemia Qualifiers: Anemia type: other cause Other causes of anemia: other cause, not classified Qualified Code(s): D64.89 - Other specified anemias Condition: Stable Disposition: ADMITTED INPATIENT Admitting Provider: Qian (Hospitalist) Unit Admitted: Telemetry Referrals: DAVID SORIANO MD [Primary Care Provider] - Follow up as needed
[2019-10-05 11:10] LABS: ABSOLUTE BASOPHILS # (AUTO) 0.1 10^3/uL (0.0-0.2); ABSOLUTE EOSINOPHILS # (AUTO) 0.4 10^3/uL (0.0-0.6); ABSOLUTE LYMPHOCYTES (AUTO) 2.5 10^3/uL (0.5-4.7); ABSOLUTE MONOCYTES (AUTO) 0.5 10^3/uL (0.1-1.4); ABSOLUTE NEUT (AUTO) 5.3 10^3/uL (1.7-8.2); BASOPHILS % (AUTO) 0.8 % (0-2); EOSINOPHILS % (AUTO) 4.5 % (0-6); HEMATOCRIT 30.8 % (36.0-47.0); HEMOGLOBIN 9.8 g/dL (12.0-15.5); LYMPHOCYTES % (AUTO) 28.5 % (13-45); MEAN CORPUSCULAR HEMOGLOBIN 26.1 pg (27.0-33.4); MEAN CORPUSCULAR HGB CONC 31.9 g/dL (32.0-36.0); MEAN CORPUSCULAR VOLUME 82 fl (80-97); MONOCYTES % (AUTO) 5.9 % (3-13); PLATELET COUNT 492 10^3/uL (150-450); RED BLOOD COUNT 3.78 10^6/uL (3.72-5.28); RED CELL DISTRIBUTION WIDTH 19.1 % (11.5-14.0); SEGMENTED NEUTROPHILS % (AUTO) 60.3 % (42-78); TOTAL CELLS COUNTED % (AUTO) 100 %; WHITE BLOOD COUNT 8.8 10^3/uL (4.0-10.5)
[2019-10-05 11:25] LABS: ALBUMIN 3.1 g/dL (3.5-5.0); ALKALINE PHOSPHATASE 101 U/L (38-126); ASPARTATE AMINO TRANSFERASE 25 U/L (14-36); BILIRUBIN,DIRECT 0.3 mg/dL (0.0-0.4); BILIRUBIN,TOTAL 0.3 mg/dL (0.2-1.3); BLOOD UREA NITROGEN 17 mg/dL (7-20); CALCIUM 9.7 mg/dL (8.4-10.2); CARBON DIOXIDE 38 mmol/L (22-30); CHLORIDE 95 mmol/L (98-107); GLUCOSE 195 mg/dL (75-110); POTASSIUM 4.9 mmol/L (3.6-5.0); TOTAL PROTEIN 6.5 g/dL (6.3-8.2)
[2019-10-05 11:30] LABS: ANION GAP 4 (5-19)
--- NOTE | 2019-10-05 11:30 | EKG REPORT ---
SEVERITY:- ABNORMAL ECG - SINUS TACHYCARDIA PROBABLE INFERIOR INFARCT, OLD : Confirmed by: Ziyad Blue MD 05-Oct-2019 11:29:16
--- NOTE | 2019-10-05 11:42 | RADIOLOGY REPORT (SQ) ---
EXAM DESCRIPTION: CHEST SINGLE VIEW COMPLETED DATE/TIME: 10/05/2019 11:18 am REASON FOR STUDY: CHEST PAIN COMPARISON: 09/14/2019 EXAM PARAMETERS: NUMBER OF VIEWS: One view. TECHNIQUE: Single frontal radiographic view of the chest acquired. RADIATION DOSE: NA LIMITATIONS: None. FINDINGS: LUNGS AND PLEURA: Trace left pleural effusion. No infiltrate. MEDIASTINUM AND HILAR STRUCTURES: No masses. Contour normal. HEART AND VASCULAR STRUCTURES: Stable heart size. Normal vasculature. BONES: No acute findings. HARDWARE: None in the chest. OTHER: No other significant finding. IMPRESSION: Trace left pleural effusion. TECHNICAL DOCUMENTATION: JOB ID: [id number] 2010 [employer]- All Rights Reserved Reading location - IP/workstation name: [email or web address]
--- NOTE | 2019-10-05 14:15 | PDOC CONSULTATION ---
Consultation Consult Date: 10/05/19 Provider Consulted: LORENZO HUNTLEY Consult reason:: Chest pain History of Present Illness Admission Date/PCP: 10/05/19 12:31 DAVID SORIANO MD Patient complains of: Chest pain History of Present Illness: HARPREET NEGRO is a 88 year old female With the following active problems 1. Diabetes mellitus 2. Obesity 3. Dementia Recent hospital admission and treatment for community-acquired pneumonia. Patient is a poor historian with difficult recall. In my encounter with the patient she reports abnormal-funny sensation in the left lower chest not exactly characterize this chest pain. Since being brought into the hospital the sensati on is passed. She does not specifically endorse chest pain or discomfort or dyspnea. Does not report present tobacco use. Diminished recall. Family history is not reliable. Past Medical History Cardiac Medical History: Reports: Congestive Heart Failure, Hyperlipidema, Hypertension Pulmonary Medical History: Reports: Chronic Obstructive Pulmonary Disease (COPD), Pneumonia Neurological Medical History: Reports: Seizures Endocrine Medical History: Reports: Diabetes Mellitus Type 2, Hypothyroidism GI Medical History: Reports: Gastroesophageal Reflux Disease Musculoskeltal Medical History: Reports: Arthritis, Gout Psychiatric Medical History: Reports: Dementia Social History Smoking Status: Unknown if Ever Smoked Family History Family History: Reviewed & Not Pertinent, Other - Family history is not available. Parental Family History Reviewed: No - Unable to recall. Dementia Children Family History Reviewed: NA Sibling(s) Family History Reviewed.: NA Medication/Allergy Home Medications: Acetaminophen [Tylenol 325 mg Tablet] 650 mg PO Q6HP PRN 09/14/19 Albuterol Sulfate [Ventolin 0.083% Neb 2.5 mg/3 mL Ampul] 1 vial NEB Q6HP PRN 09/14/19 Albuterol Sulfate [Ventolin Hfa 8 gm Mdi] 2 puff IH Q4HP PRN 09/14/19 Aspirin [Aspirin 81 mg Chewable Tablet] 81 mg PO DAILY 09/14/19 Benzonatate [Tessalon Perles 100 mg Capsule] 100 mg PO TIDP PRN 09/14/19 Budesonide/Formoterol Fumarate [Symbicort HFA 160-4.5 mcg Inhaler 6 gm] 2 puff IH Q12 09/14/19 Ferrous Sulfate [Feosol 325 mg Tablet] 325 mg PO DAILY 09/14/19 Gabapentin [Neurontin 300 mg Capsule] 600 mg PO Q8 09/14/19 Glimepiride [Amaryl 4 mg Tablet] 4 mg PO DAILY 09/14/19 Insulin Glargine/Lixisenatide [Soliqua 100 Unit-33 Mcg/ml Pen] 28 units SQ QHS 09/14/19 Levothyroxine Sodium [Synthroid 0.05 mg Tablet] 0.05 mg PO Q6AM 09/14/19 Metoprolol Tartrate [Lopressor 25 mg Tablet] 12.5 mg PO Q12 09/14/19 Mirtazapine 30 mg PO QHS 09/14/19 Montelukast Sodium [Singulair 10 mg Tablet] 10 mg PO DAILY 09/14/19 Multivit,Calc,Mins/Iron/Folic [Thera M Plus Tablet] 1 tab PO QPM 09/14/19 Omeprazole 40 mg PO BID 09/14/19 Thiamine HCl [Thiamine 100 mg Tablet] 100 mg PO DAILY 09/14/19 Zinc Oxide [Skin Protectant] 1 applic TOP Q12 09/14/19 Azithromycin [Zithromax 250 mg Tablet] 250 mg PO ASDIR PRN 4 Days #4 tablet 09/16/19 Prednisone [Deltasone 20 mg Tablet] 40 mg PO DAILY 3 Days tablet 09/16/19 Allergies/Adverse Reactions: barley Allergy (Verified 09/14/19 12:20) ranitidine Allergy (Verified 09/14/19 12:20) sulfamethoxazole [From Bactrim] Allergy (Verified 09/14/19 12:20) trimethoprim [From Bactrim] Allergy (Verified 09/14/19 12:20) iodine Adverse Reaction (Verified 09/14/19 12:20) shellfish derived Adverse Reaction (Verified 09/14/19 12:20) Review of Systems ROS unobtainable: Other - Not reliable review of systems owing to poor recall Constitutional: PRESENT: as per HPI Breasts: PRESENT: as per HPI Cardiovascular: PRESENT: as per HPI Physical Exam Vital Signs: Temp Pulse Resp BP Pulse Ox 97.9 F 28 H 113/61 98 10/05/19 11:01 10/05/19 13:01 10/05/19 13:01 10/05/19 12:03 Intake & Output 10/04/19 10/05/19 10/06/19 06:59 06:59 06:59 Intake Total 250 Balance 250 Weight 103.6 kg General appearance: PRESENT: cooperative, obese, well-developed, well-nourished Head exam: PRESENT: atraumatic, normocephalic Eye exam: PRESENT: conjunctiva pale, EOMI Mouth exam: PRESENT: moist Respiratory exam: PRESENT: crackles, decreased breath sounds, symmetrical, unlabored Cardiovascular exam: PRESENT: RRR, +S1, +S2 Pulses: PRESENT: normal radial pulses GI/Abdominal exam: PRESENT: soft Rectal exam: PRESENT: deferred Neurological exam: PRESENT: alert, awake, oriented to person, oriented to place Psychiatric exam: PRESENT: appropriate affect Skin exam: PRESENT: dry, intact, normal color Results Laboratory Results: 10/05/19 10:45 10/05/19 10:45 10/05/19 10/05/19 10/05/19 10:45 10:45 10:45 WBC 8.8 RBC 3.78 Hgb 9.8 L Hct 30.8 L MCV 82 MCH 26.1 L MCHC 31.9 L RDW 19.1 H Plt Count 492 H Seg Neutrophils % 60.3 Sodium 136.6 L Potassium 4.9 Chloride 95 L Carbon Dioxide 38 H Anion Gap 4 L BUN 17 Creatinine 0.84 Est GFR ( Amer) > 60 Glucose 195 H Lactic Acid 1.0 Calcium 9.7 Magnesium 2.2 Total Bilirubin 0.3 AST 25 Alkaline Phosphatase 101 Total Protein 6.5 Albumin 3.1 L Lipase 165.5 10/05/19 10:45 Troponin I < 0.012 EKG Comments: Chest x-ray 10/05/2019 Trace left pleural effusion. Twelve-lead EKG 09/14/2019 Sinus rhythm, 93 bpm Twelve-lead EKG 10/05/2019 Independently viewed by me. Sinus tachycardia 113 bpm Impressions: Chest X-Ray 10/05/19 10:42 IMPRESSION: Trace left pleural effusion. Status: Image reviewed by me Assessment & Plan - Diagnosis (1) Chest pain Qualifiers: Chest pain type: unspecified Qualified Code(s): R07.9 - Chest pain, unspecified Is this a current diagnosis for this admission?: Yes Plan: Not sure of the symptoms described as chest pain. Patient describes funny sensations in the chest which have now resolved. EKG is nondiagnostic for myocardial ischemia Cardiac biomarker x1 is negative Absent ongoing chest pain would not pursue work-up for same. May be reasonable to monitor the patient due to diminished recall and unreliable history as to what her exact complaint is.
[2019-10-05] MEDS ORDERED: ALBUTEROL SULFATE 0.083% NEB 2.5 MG/3 ML AMPUL NEB PRN (15:28)
[2019-10-05] MEDS ORDERED: BENZONATATE 100 MG CAPSULE PO PRN (15:28)
[2019-10-05] MEDS ORDERED: ACETAMINOPHEN 325 MG TABLET PO PRN (15:28)
[2019-10-05] MEDS ORDERED: ALBUTEROL SULFATE HFA (90 MCG/PUFF) 8 GM MDI IH PRN (15:28)
[2019-10-05] MEDS ORDERED: IBUPROFEN 400 MG TABLET PO PRN (15:28)
--- NOTE | 2019-10-05 15:41 | PDOC H&P ---
History of Present Illness Admission Date/PCP: 10/05/19 12:31 DAVID SORIANO MD Patient complains of: Chest pain and fluttering in her chest History of Present Illness: HARPREET NEGRO is a 88 year old female Patient is jail patient who is demented. She could not provide any history to me. All history was taken from the ER personnel. Apparently she has had fluttering in her chest and chest pain last night that currently resolved. Past Medical History Cardiac Medical History: Reports: Congestive Heart Failure, Hyperlipidema, Hypertension Pulmonary Medical History: Reports: Chronic Obstructive Pulmonary Disease (COPD), Pneumonia Neurological Medical History: Reports: Seizures Endocrine Medical History: Reports: Diabetes Mellitus Type 2, Hypothyroidism GI Medical History: Reports: Gastroesophageal Reflux Disease Musculoskeltal Medical History: Reports: Arthritis, Gout Psychiatric Medical History: Reports: Dementia Social History Lives with: Half-Way Smoking Status: Unknown if Ever Smoked Family History Family History: Reviewed & Not Pertinent, Other - Family history is not available. Parental Family History Reviewed: Yes Children Family History Reviewed: Yes Sibling(s) Family History Reviewed.: Yes Medication/Allergy Home Medications: Acetaminophen [Tylenol 325 mg Tablet] 650 mg PO Q6HP PRN 09/14/19 Albuterol Sulfate [Ventolin 0.083% Neb 2.5 mg/3 mL Ampul] 1 vial NEB RTQ6HP PRN 09/14/19 Albuterol Sulfate [Ventolin Hfa 8 gm Mdi] 2 puff IH Q4HP PRN 09/14/19 Aspirin [Aspirin 81 mg Chewable Tablet] 81 mg PO DAILY 09/14/19 Benzonatate [Tessalon Perles 100 mg Capsule] 100 mg PO TIDP PRN 09/14/19 Budesonide/Formoterol Fumarate [Symbicort HFA 160-4.5 mcg Inhaler 6 gm] 2 puff IH Q12 09/14/19 Ferrous Sulfate [Feosol 325 mg Tablet] 325 mg PO DAILY 09/14/19 Gabapentin [Neurontin 300 mg Capsule] 600 mg PO Q8 09/14/19 Glimepiride [Amaryl 4 mg Tablet] 4 mg PO DAILY 09/14/19 Insulin Glargine/Lixisenatide [Soliqua 100 Unit-33 Mcg/ml Pen] 28 units SQ QHS 09/14/19 Levothyroxine Sodium [Synthroid 0.05 mg Tablet] 0.05 mg PO Q6AM 09/14/19 Metoprolol Tartrate [Lopressor 25 mg Tablet] 12.5 mg PO Q12 09/14/19 Mirtazapine 30 mg PO QHS 09/14/19 Montelukast Sodium [Singulair 10 mg Tablet] 10 mg PO DAILY 09/14/19 Multivit,Calc,Mins/Iron/Folic [Thera M Plus Tablet] 1 tab PO QPM 09/14/19 Omeprazole 40 mg PO BID 09/14/19 Thiamine HCl [Thiamine 100 mg Tablet] 100 mg PO DAILY 09/14/19 Ammonium Lactate [Lac-Hydrin 12% Lotion 225Gm/Bottle] 1 applic TOP QHS 10/05/19 Ibuprofen [Motrin 400 mg Tablet] 400 mg PO Q3HP PRN 10/05/19 Insulin Lispro [Humalog Insulin (Lispro) 100 unit/mL] 0 units SQ .PERSLIDINGSCALE 10/05/19 Allergies/Adverse Reactions: barley Allergy (Verified 09/14/19 12:20) ranitidine Allergy (Verified 09/14/19 12:20) sulfamethoxazole [From Bactrim] Allergy (Verified 09/14/19 12:20) trimethoprim [From Bactrim] Allergy (Verified 09/14/19 12:20) iodine Adverse Reaction (Verified 09/14/19 12:20) shellfish derived Adverse Reaction (Verified 09/14/19 12:20) Review of Systems ROS unobtainable: Due to mental status Physical Exam Vital Signs: Temp Pulse Resp BP Pulse Ox 97.9 F 26 H 113/56 L 98 10/05/19 11:01 10/05/19 14:01 10/05/19 14:01 10/05/19 12:03 Intake & Output 10/04/19 10/05/19 10/06/19 06:59 06:59 06:59 Intake Total 250 Balance 250 Weight 228 lb 6.382 oz General appearance: PRESENT: no acute distress, obese Head exam: PRESENT: atraumatic, normocephalic Eye exam: PRESENT: PERRLA. ABSENT: scleral icterus Ear exam: ABSENT: bleeding, drainage Mouth exam: PRESENT: moist, neck supple Neck exam: ABSENT: meningismus, tenderness Respiratory exam: PRESENT: clear to auscultation marques. ABSENT: accessory muscle use, chest wall tenderness Cardiovascular exam: PRESENT: RRR. ABSENT: diastolic murmur, systolic murmur Pulses: PRESENT: normal carotid pulses, normal radial pulses GI/Abdominal exam: PRESENT: normal bowel sounds. ABSENT: ascites, mass, organolmegaly Rectal exam: PRESENT: deferred Neurological exam: PRESENT: alert, awake, oriented to person, oriented to place, oriented to time Psychiatric exam: PRESENT: other - demented Skin exam: PRESENT: other - chronic skin chnages both feet Results Laboratory Results: 10/05/19 10:45 10/05/19 10:45 10/05/19 10/05/19 10/05/19 10:45 10:45 10:45 WBC 8.8 RBC 3.78 Hgb 9.8 L Hct 30.8 L MCV 82 MCH 26.1 L MCHC 31.9 L RDW 19.1 H Plt Count 492 H Seg Neutrophils % 60.3 Sodium 136.6 L Potassium 4.9 Chloride 95 L Carbon Dioxide 38 H Anion Gap 4 L BUN 17 Creatinine 0.84 Est GFR ( Amer) > 60 Glucose 195 H Lactic Acid 1.0 Calcium 9.7 Magnesium 2.2 Total Bilirubin 0.3 AST 25 Alkaline Phosphatase 101 Total Protein 6.5 Albumin 3.1 L Lipase 165.5 10/05/19 10:45 Troponin I < 0.012 Impressions: Chest X-Ray 10/05/19 10:42 IMPRESSION: Trace left pleural effusion. Assessment and Plan - Diagnosis (1) Chest pain Qualifiers: Chest pain type: unspecified Qualified Code(s): R07.9 - Chest pain, unspecified Is this a current diagnosis for this admission?: Yes Plan: unclear if she has chest pain. admit for observation. appreciate cardiology evaluation. check troponin. (2) CHF (congestive heart failure) Qualifiers: Heart failure type: unspecified Is this a current diagnosis for this admission?: Yes Plan: continue home meds (3) COPD (chronic obstructive pulmonary disease) Qualifiers: COPD type: unspecified COPD Qualified Code(s): J44.9 - Chronic obstructive pulmonary disease, unspecified Is this a current diagnosis for this admission?: Yes Plan: continue home meds (4) Hypertension Qualifiers: Hypertension type: essential hypertension Qualified Code(s): I10 - Essential (primary) hypertension Is this a current diagnosis for this admission?: Yes Plan: continue home meds (5) Hypothyroidism Qualifiers: Hypothyroidism type: unspecified Qualified Code(s): E03.9 - Hypothyroidism, unspecified Is this a current diagnosis for this admission?: Yes Plan: continue home meds (6) Severe dementia Is this a current diagnosis for this admission?: Yes (7) T2DM (type 2 diabetes mellitus) Qualifiers: Diabetes mellitus manager terminal insulin use: with senior care use Diabetes mellitus complication status: with hyperglycemia Qualified Code(s): E11.65 - Type 2 diabetes mellitus with hyperglycemia; Z79.4 - nursing home (current) use of insulin Is this a current diagnosis for this admission?: Yes Plan: continue home meds. insulin sliding scale. monitor glucose levels
[2019-10-05] MEDS ORDERED: GLUCAGON,HUMAN RECOMB 1 MG INJ IM PRN (15:49)
[2019-10-05] MEDS ORDERED: DEXTROSE 40% GEL 15 GM TUBE PO PRN ×2 (15:49)
[2019-10-05] MEDS ORDERED: DEXTROSE 50%-WATER 25 GM/50 ML DISP.SYRIN IV PRN ×2 (15:49)
[2019-10-05] MEDS ORDERED: MULTIVIT CALC MINS PO SCH (18:00)
[2019-10-05] MEDS ORDERED: MULTIVITAMIN TABLET PO SCH (18:00)
[2019-10-05] MEDS ORDERED: IRON PO SCH (18:00)
[2019-10-05] MEDS ORDERED: FOLIC PO SCH (18:00)
[2019-10-05] MEDS ORDERED: MONTELUKAST SODIUM 10 MG TABLET PO SCH (22:00)
[2019-10-05] MEDS ORDERED: MIRTAZAPINE 15 MG TABLET PO SCH (22:00)
[2019-10-05] MEDS ORDERED: [UNRECOGNIZED DRUG - OTHER] SUBCUT SCH (22:00)
[2019-10-05] MEDS ORDERED: (PENDING PHARMACY ID) (Mirtazapine [Mirtazapine] 30 MG) PO SCH (22:00)
[2019-10-05] MEDS ORDERED: (PENDING PHARMACY ID) (Ammonium Lactate 1 APPLIC) TOP SCH (22:00)
[2019-10-05] MEDS ORDERED: AMMONIUM LACTATE 12% LOTION 225GM BOTTLE TP SCH (22:00)
[2019-10-05] MEDS: METOPROLOL TARTRATE 25 MG TABLET PO SCH (22:28)
[2019-10-05] MEDS: GABAPENTIN 300 MG CAPSULE PO SCH (22:28)
[2019-10-06] MEDS: GABAPENTIN 300 MG CAPSULE PO SCH (05:05)
[2019-10-06] MEDS ORDERED: LEVOTHYROXINE SODIUM 0.05 MG TABLET PO SCH (06:00)
[2019-10-06] MEDS ORDERED: PANTOPRAZOLE SODIUM 40 MG TABLET.DR PO SCH (08:00)
[2019-10-06] MEDS ORDERED: INSULIN LISPRO 100 UNIT/ML 3 ML VIAL SUBCUT SCH (08:00)
[2019-10-06] MEDS ORDERED: THIAMINE HCL 100 MG TABLET PO SCH (10:00)
[2019-10-06] MEDS ORDERED: FLUTICASONE/VILANTEROL 200-25 MCG/DOSE IH SCH (10:00)
[2019-10-06] MEDS ORDERED: FERROUS SULFATE 325 MG TABLET PO SCH (10:00)
[2019-10-06] MEDS ORDERED: ASPIRIN 81 MG TABLET, CHEWABLE PO SCH (10:00)
--- NOTE | 2019-10-06 10:16 | PDOC DISCHARGE SUMMARY ---
Impression - Admit/DC Date/PCP Admission Date/Primary Care Provider: 10/05/19 12:31 DAVID SORIANO MD Discharge Date: 10/06/19 - Discharge Diagnosis (1) Chest pain Is this a current diagnosis for this admission?: Yes (2) CHF (congestive heart failure) Is this a current diagnosis for this admission?: Yes (3) COPD (chronic obstructive pulmonary disease) Is this a current diagnosis for this admission?: Yes (4) Hypertension Is this a current diagnosis for this admission?: Yes (5) Hypothyroidism Is this a current diagnosis for this admission?: Yes (6) Severe dementia Is this a current diagnosis for this admission?: Yes (7) T2DM (type 2 diabetes mellitus) Is this a current diagnosis for this admission?: Yes - Assessment Summary: Patient complains of: Chest pain and fluttering in her chest History of Present Illness: HARPREET NEGRO is a 88 year old female Patient is [facility] patient who is demented. She could not provide any history to me. All history was taken from the ER personnel. Apparently she has had fluttering in her chest and chest pain last night that currently resolved. Physical Exam General appearance: no acute distress, obese Head exam: atraumatic, normocephalic Eye exam: PERRLA. no scleral icterus Ear exam: no bleeding, drainage Mouth exam: moist, neck supple Neck exam: no meningismus, tenderness Respiratory exam: clear to auscultation marques. no accessory muscle use, chest wall tenderness Cardiovascular exam: RRR. no diastolic murmur, systolic murmur Pulses: normal carotid pulses, normal radial pulses GI/Abdominal exam: normal bowel sounds. no ascites, mass, organolmegaly Rectal exam: deferred Neurological exam: alert, awake, oriented to person, oriented to place, oriented to time Psychiatric exam: other - demented Skin exam: other - chronic skin chnages both feet Hospital course: (1) Chest pain unclear if she has chest pain. admitted for observation. appreciate cardiology evaluation. negative serial troponin. (2) CHF (congestive heart failure) continue home meds (3) COPD (chronic obstructive pulmonary disease) continue home meds (4) Hypertension continue home meds (5) Hypothyroidism continue home meds (6) Severe dementia (7) T2DM (type 2 diabetes mellitus) continue home meds. insulin sliding scale. monitor glucose levels - Additional Information Discharge Diet: As Tolerated Discharge Activity: Activity As Tolerated Referrals: DAVID SORIANO MD [Primary Care Provider] - Follow up as needed Home Medications: Acetaminophen [Tylenol 325 mg Tablet] 650 mg PO Q6HP PRN 09/14/19 Albuterol Sulfate [Ventolin 0.083% Neb 2.5 mg/3 mL Ampul] 1 vial NEB RTQ6HP PRN 09/14/19 Albuterol Sulfate [Ventolin Hfa 8 gm Mdi] 2 puff IH Q4HP PRN 09/14/19 Aspirin [Aspirin 81 mg Chewable Tablet] 81 mg PO DAILY 09/14/19 Benzonatate [Tessalon Perles 100 mg Capsule] 100 mg PO TIDP PRN 09/14/19 Budesonide/Formoterol Fumarate [Symbicort HFA 160-4.5 mcg Inhaler 6 gm] 2 puff IH Q12 09/14/19 Ferrous Sulfate [Feosol 325 mg Tablet] 325 mg PO DAILY 09/14/19 Gabapentin [Neurontin 300 mg Capsule] 600 mg PO Q8 09/14/19 Glimepiride [Amaryl 4 mg Tablet] 4 mg PO DAILY 09/14/19 Insulin Glargine/Lixisenatide [Soliqua 100 Unit-33 Mcg/ml Pen] 28 units SQ QHS 09/14/19 Levothyroxine Sodium [Synthroid 0.05 mg Tablet] 0.05 mg PO Q6AM 09/14/19 Metoprolol Tartrate [Lopressor 25 mg Tablet] 12.5 mg PO Q12 09/14/19 Mirtazapine 30 mg PO QHS 09/14/19 Montelukast Sodium [Singulair 10 mg Tablet] 10 mg PO DAILY 09/14/19 Multivit,Calc,Mins/Iron/Folic [Thera M Plus Tablet] 1 tab PO QPM 09/14/19 Omeprazole 40 mg PO BID 09/14/19 Thiamine HCl [Thiamine 100 mg Tablet] 100 mg PO DAILY 09/14/19 Ammonium Lactate [Lac-Hydrin 12% Lotion 225Gm/Bottle] 1 applic TOP QHS 10/05/19 Ibuprofen [Motrin 400 mg Tablet] 400 mg PO Q3HP PRN 10/05/19 Insulin Lispro [Humalog Insulin (Lispro) 100 unit/mL] 0 units SQ .PERSLIDINGSCALE 10/05/19 History of Present Illiness History of Present Illness: HARPREET NEGRO is a 88 year old female Patient is [facility] patient who is demented. She could not provide any history to me. All history was taken from the ER personnel. Apparently she has had fluttering in her chest and chest pain last night that currently resolved. Physical Exam Vital Signs: Temp Pulse Resp BP Pulse Ox 98.2 F 81 17 120/50 L 100 10/06/19 03:07 10/06/19 07:00 10/06/19 03:07 10/06/19 03:07 10/06/19 03:07 Intake & Output 10/05/19 10/06/19 10/07/19 06:59 06:59 06:59 Intake Total 250 Balance 250 Weight 225 lb 1.471 oz Results Laboratory Results: WBC 8.8 10^3/uL (4.0-10.5) 10/05/19 10:45 RBC 3.78 10^6/uL (3.72-5.28) 10/05/19 10:45 Hgb 9.8 g/dL (12.0-15.5) L 10/05/19 10:45 Hct 30.8 % (36.0-47.0) L 10/05/19 10:45 MCV 82 fl (80-97) 10/05/19 10:45 MCH 26.1 pg (27.0-33.4) L 10/05/19 10:45 MCHC 31.9 g/dL (32.0-36.0) L 10/05/19 10:45 RDW 19.1 % (11.5-14.0) H 10/05/19 10:45 Plt Count 492 10^3/uL (150-450) H 10/05/19 10:45 Lymph % (Auto) 28.5 % (13-45) 10/05/19 10:45 Moody % (Auto) 5.9 % (3-13) 10/05/19 10:45 Eos % (Auto) 4.5 % (0-6) 10/05/19 10:45 Baso % (Auto) 0.8 % (0-2) 10/05/19 10:45 Absolute Neuts (auto) 5.3 10^3/uL (1.7-8.2) 10/05/19 10:45 Absolute Lymphs (auto) 2.5 10^3/uL (0.5-4.7) 10/05/19 10:45 Absolute Monos (auto) 0.5 10^3/uL (0.1-1.4) 10/05/19 10:45 Absolute Eos (auto) 0.4 10^3/uL (0.0-0.6) 10/05/19 10:45 Absolute Basos (auto) 0.1 10^3/uL (0.0-0.2) 10/05/19 10:45 Seg Neutrophils % 60.3 % (42-78) 10/05/19 10:45 Sodium 136.6 mmol/L (137-145) L 10/05/19 10:45 Potassium 4.9 mmol/L (3.6-5.0) 10/05/19 10:45 Chloride 95 mmol/L (98-107) L 10/05/19 10:45 Carbon Dioxide 38 mmol/L (22-30) H 10/05/19 10:45 Anion Gap 4 (5-19) L 10/05/19 10:45 BUN 17 mg/dL (7-20) 10/05/19 10:45 Creatinine 0.84 mg/dL (0.52-1.25) 10/05/19 10:45 Est GFR ( Amer) > 60 (>60) 10/05/19 10:45 Est GFR (MDRD) Non-Af > 60 (>60) 10/05/19 10:45 Glucose 195 mg/dL (75-110) H 10/05/19 10:45 POC Glucose 97 mg/dL (70-110) 10/06/19 08:08 Lactic Acid 1.0 mmol/L (0.7-2.1) 10/05/19 10:45 Calcium 9.7 mg/dL (8.4-10.2) 10/05/19 10:45 Magnesium 2.2 mg/dL (1.6-2.3) 10/05/19 10:45 Total Bilirubin 0.3 mg/dL (0.2-1.3) 10/05/19 10:45 Direct Bilirubin 0.3 mg/dL (0.0-0.4) 10/05/19 10:45 Neonat Total Bilirubin Not Reportable 10/05/19 10:45 Neonat Direct Bilirubin Not Reportable 10/05/19 10:45 Neonat Indirect Bili Not Reportable 10/05/19 10:45 AST 25 U/L (14-36) 10/05/19 10:45 ALT 13 U/L (<35) 10/05/19 10:45 Alkaline Phosphatase 101 U/L (38-126) 10/05/19 10:45 Troponin I 0.013 ng/mL 10/06/19 05:08 Total Protein 6.5 g/dL (6.3-8.2) 10/05/19 10:45 Albumin 3.1 g/dL (3.5-5.0) L 10/05/19 10:45 Lipase 165.5 U/L (23-300) 10/05/19 10:45 10/05/19 10/05/19 10/06/19 10:45 18:04 00:16 Troponin I < 0.012 < 0.012 < 0.012 10/06/19 05:08 Troponin I 0.013 Impressions: Chest X-Ray 10/05/19 10:42 IMPRESSION: Trace left pleural effusion. Stroke Is this a Stroke Patient?: No Acute Heart Failure - Is this a Heart Failure Patient?: No
[2019-10-06] MEDS: METOPROLOL TARTRATE 25 MG TABLET PO SCH (10:20)
[2019-10-06 13:52] VITALS: BP 117/60
== END 2019-10-06 16:32 ==
LOC: ER 10:27 → INTOOBSV 12:31 → EH 12:31 → 3W 17:20
PROVIDERS: ADMIT Family Medicine; ATTEND Family Medicine
DX: R07.9 Chest pain, unspecified (principal); I11.0 Hypertensive heart disease with heart failure; I50.9 Heart failure, unspecified; J44.9 Chronic obstructive pulmonary disease, unspecified; E03.9 Hypothyroidism, unspecified; F03.90 Unspecified dementia, unspecified severity, without behavioral disturbance, psychotic disturbance, mood disturbance, and anxiety; E11.65 Type 2 diabetes mellitus with hyperglycemia; K21.9 Gastro-esophageal reflux disease without esophagitis; Z87.01 Personal history of pneumonia (recurrent); E66.9 Obesity, unspecified; R00.0 Tachycardia, unspecified; Z79.4 Long term (current) use of insulin; Z79.899 Other long term (current) drug therapy; Z79.82 Long term (current) use of aspirin
CPT/HCPCS: 93005; 99285; 36415 ×2; 82962; 83605; 83690; 83735; 85025; 80053; 84484 ×2; 71045; 93010; A9270 ×14; J3490 ×3; J7030; G0378